=== PATIENT | male | born 1960 ===

== ENCOUNTER 2023-06-11 13:32 | Inpatient (IN) | payer OTHER ==
[~2023-06-11] VITALS: Ht 172.7 cm; Wt 73.6 kg
[2023-06-11 14:21] LABS: Mean Corpuscular HGB 32.1 pg (26.0-34.0); Mean Corpuscular HGB Conc 35.7 g/dL (31.5-36.5); Mean Corpuscular Volume 90 fL (80-100); Mean Platelet Volume 10.2 fL (9.1-12.4); Platelet Count 157 K/mm3 (150-400); RDW Coefficient Variation 12.3 % (11.7-14.2); Red Blood Cell Count 4.67 M/mm3 (4.30-5.90); White Blood Cell Count 13.96 K/mm3 (4.00-11.30)
[2023-06-11 14:35] LABS: Influenza A, PCR NEGATIVE (NEGATIVE); Influenza B, PCR NEGATIVE (NEGATIVE); Resp Syncytial Virus, PCR NEGATIVE (NEGATIVE); SARS-Cov-2 (COVID-19) PCR, MMC NEGATIVE (NEGATIVE)
[2023-06-11 14:39] LABS: BAND PERCENT MAN 31 % (0-8); BASOPHILS PERCENT MAN 0 % (0-2); EOSINOPHILS PERCENT MAN 0 % (0-6); LYMPHOCYTES ABSOLUTE MAN 0.27 K/mm3 (0.84-5.20); LYMPHOCYTES PERCENT MAN 2 % (21-46); METAMYELOCYTE ABSOLUTE MAN 0.27 K/mm3 (0.00-0.00); METAMYELOCYTE PERCENT MAN 2 % (0-0); MONOCYTES ABSOLUTE MAN 0.69 K/mm3 (0.16-1.47); MONOCYTES PERCENT MAN 5 % (4-13); SEG NEUTROPHILS PERCENT MAN 60 % (41-73); TOTAL CELLS COUNTED 100
[2023-06-11 14:41] LABS: Albumin/Globulin Ratio 0.9 (0.8-1.8); Bilirubin, Total 1.1 mg/dL (0.1-1.0); Bun/Creatinine Ratio 16.5 (12.0-20.0); Calcium, Blood 8.4 mg/dL (8.5-10.1); Creatinine, Blood 1.94 mg/dL (0.60-1.20); Globulin, Blood 3.3 g/dL (2.2-4.0); Potassium, Blood 3.6 mmol/L (3.5-5.5); Total Protein, Blood 6.3 g/dL (6.4-8.2)
[2023-06-11] MEDS ORDERED: Ventolin/Prove6.7 GM INH (17:27)
[2023-06-11] MEDS ORDERED: MONT10T PO (20:29)
[2023-06-12] VITALS (24 sets, daily range): BP systolic 81–137; BP diastolic 64–87
[2023-06-12 00:10] LABS: Base Excess Venous -3.6 mmol/L; Bicarbonate Venous 21.3 mmol/L (24.0-30.0); PCO2 Venous 39.9 mmHg (38-42); pH Blood Venous 7.35 (7.34-7.37)
--- NOTE | 2023-06-12 00:43 | NUR ---
ASSUMPTION OF CARE RECEIVED INTO CARE. ABLE TO AMBULATE INDEPENDENTLY FROM STRETCHER TO BED. ATTACHED TO MONITOR. IN SINUS TACHY. ON 2L SIGNALING DESIGN ENGINEER SPO2>95%. AUDIBLY WHEEZING/TACHYPNEIC/INCREASED WOB, RESPIRATORY CALLED. RT CAME TO ASSESS BREATHING TREATMENT DONE. AT BEDSIDE. SEE SHIFT ASSESSMENT FOR FURTHER DETAILS.
[2023-06-12 00:54] LABS: Source, Urine Clean Catch
[2023-06-12 01:00] LABS: Bilirubin, Urine Neg (Neg); Blood, Urine 4+ (Neg); Glucose Qualitative, Urine Neg (Neg); Ketones, Urine 1+ (Neg); Leukocyte Esterase, Urine Neg (Neg); Nitrite, Urine Neg (Neg); Protein, Urine 2+ (Neg); Specific Gravity, Urine 1.015 (1.003-1.022); Urobilinogen, Urine NORM (Normal)
[2023-06-12 01:17] LABS: Appearance, Urine Clear (Clear); Color, Urine Yellow (P-Yellow)
[2023-06-12 01:19] LABS: Bacteria Few /hpf; Red Blood Cells, Urine 0-2 /hpf (0-2); Squamous Epithelial Cells Few /hpf (Few); White Blood Cells, Urine 0-2 /hpf (0-5)
[2023-06-12 03:32] LABS: Hematocrit 40.5 % (37.0-53.0); Mean Corpuscular HGB 31.4 pg (26.0-34.0); Mean Corpuscular HGB Conc 34.6 g/dL (31.5-36.5); Mean Corpuscular Volume 91 fL (80-100); Mean Platelet Volume 10.3 fL (9.1-12.4); Platelet Count 145 K/mm3 (150-400); RDW Coefficient Variation 12.4 % (11.7-14.2); RDW Standard Deviation 41.1 fL (35.1-46.3); Red Blood Cell Count 4.46 M/mm3 (4.30-5.90); White Blood Cell Count 7.83 K/mm3 (4.00-11.30)
[2023-06-12 03:49] LABS: Bun/Creatinine Ratio 19.9 (12.0-20.0); Calcium, Blood 7.4 mg/dL (8.5-10.1); Creatinine, Blood 1.36 mg/dL (0.60-1.20); Magnesium, Blood 1.7 mg/dL (1.6-2.4); Potassium, Blood 4.2 mmol/L (3.5-5.5)
[2023-06-12 04:04] LABS: BAND PERCENT MAN 36 % (0-8); BASOPHILS PERCENT MAN 0 % (0-2); EOSINOPHILS PERCENT MAN 0 % (0-6); LYMPHOCYTES ABSOLUTE MAN 0.15 K/mm3 (0.84-5.20); LYMPHOCYTES PERCENT MAN 2 % (21-46); METAMYELOCYTE ABSOLUTE MAN 0.07 K/mm3 (0.00-0.00); METAMYELOCYTE PERCENT MAN 1 % (0-0); MONOCYTES ABSOLUTE MAN 0.54 K/mm3 (0.16-1.47); MONOCYTES PERCENT MAN 7 % (4-13); MYELOCYTE ABSOLUTE MAN 0.07 K/mm3 (0.00-0.00); MYELOCYTE PERCENT MAN 1 % (0-0); NEUTROPHILS ABSOLUTE MAN 6.96 K/mm3 (1.96-9.15); SEG NEUTROPHILS PERCENT MAN 53 % (41-73); TOTAL CELLS COUNTED 100
--- NOTE | 2023-06-12 06:06 | NUR ---
SHIFT SUMMARY ADMITTED TO ICU AT 0043. ALERT AND ORIENTED X4. PAIN TO FLANKS/BACK/ABDO THAT INCREASES WITH COUGHING, TYLENOL GIVEN PER MAR AND PT REPORTED WARM BLANKETS WRAPPED AROUND BACK WAS COMFORTING. IN ST HR 115-130S, MAP MAINTAINED >70. ON 2L SUPERVISOR ALTERATION WORKROOM SPO2>94%, COARSE THROUGHOUT, WHEEZY OFF/ON. 2 BREATHING TREATMENTS DONE. HAS FREQUENT COUGHING FITS WITH HEMOPTYSIS. NO N/V. VOIDS USING URINALS. SPENT NIGHT AT BEDSIDE. NO VOICED CONCERNS BY PT OR AT THIS TIME. REMAINS AWAKE SITTING IN BED WATCHING TV, CALL CHANDLER IN REACH.
--- NOTE | 2023-06-12 07:15 | NUR ---
Assumed care of pt at 0700. Bedside report received from Gladis ALATORRE. Pt A&O x 4. Answers questions, follows commands, verbalizes needs. Pleasant and cooperative with care. SpO2 90% or greater with 2 LPM NC. Reports 3/10 pain to chest/back, worse with taking a deep breath or coughing, but states 3/10 is tolerable at this time. HR 120s per monitor, sinus. BP stable.
--- NOTE | 2023-06-12 09:00 | NUR ---
Discussed with provider that pt is having pink sputum. Provider would like patient to continue receiving lovenox for DVT/PE prophylaxis.
--- NOTE | 2023-06-12 14:55 | NUR ---
Pt. is awake in bed and welcomes my visit. Pts. daughter is present. facilitate a short life review. Pt. verbalizes that he is roman catholic and that our volunteer had visited and gave him a rosary. Pt. welcomes more prayer. Prayed with Pt. and gave some biblical study education to the Pts. daughter who had her bible open. Daughter verbalized gratitude for the pastoral support and for the Pts. visit.
--- NOTE | 2023-06-12 16:58 | NUR ---
Discussed with provider that sputum has become more red in color. Also discussed that pt's lung sounds have changed from clear to rhonchi and he experienced tachypnea with rate 55 and drop in SpO2 repositioning for office technology instructor. Provider in to see patient and discuss plan of care. No new orders at this time.
--- NOTE | 2023-06-12 17:13 | NUR ---
SUMMARY Neuro: A&O x 4. Answers questions, follows commands, verbalizes needs. Pleasant and cooperative with care. Musc: OOB once this shift to stand and use urinal. Has not been out of bed since due to increasing dyspnea and hypoxia with exertion. This afternoon, pt had drop in SpO2 and respiratory rate 55 with in bed repositioning. Resp: Initially clear with shallow breaths. Breathing remains shallow but pt has rhonchi in all lung perez. Increased frequency of cough and expectoration with watery light red sputum. SpO2 94% with 4 LPM NC. ETCO2 monitoring in place, currently 28 with RR 33. Cardiac: ST this shift. HR 120s. HR was 140s at rest mid-shift, but this improved after 1 L bolus NS. BP improved from this AM. GI: No BM this shift. Pt was refusing regular diet because he felt that the stimulation caused him to cough more. Changed diet to full liquid. Intake is poor but pt tolerates this better than regular diet. : Good urine output of dark tomás urine. Skin: Unchanged from initial assessment. Psychosocial: Family at bedside for majority of shift. Daughter currently in room, plans to spend the night. Pt and family updated.
--- NOTE | 2023-06-12 21:45 | NUR ---
PAIN MANAGEMENT CALLED DR. THOMPSON REGARDING PT'S PAIN NOT DECREASING WITH CURRENT MEDICATIONS AND INTERVENTIONS. ORDERS RECIEVED, SEE EMAR.
--- NOTE | 2023-06-12 21:52 | NUR ---
ASSUMED CARE CARE WAS ASSUMED OF PT AT 1900, REPORT GIVEN BY GLORIA ALATORRE. PT A/O X4, PT ABLE TO PARTICIPATE IN CONVERSATION AND ASK QUESIONS APPROPRIATELY. PT ON BEDREST AT THIS TIME D/T SOB AND TACHYPNEA AT REST. PT COMPLAINING OF PLEURITIC/MUSCULAR PAIN, MEDICATING PT PER EMAR AND APPLIED HEAT PAD. PT ON 4 L N/C, O2 SATS > 92%. etCO2 MONITORING IN PLACE, MEASUREMENT 23-27 AT THIS TIME. RESPIRATION RATE 30s AT THIS TIME. PT SOB AT REST, BLOOD TINGED SPUTUM PRODUCED WITH PRODUCTIVE COUGHING. CARDIAC MONITORING REFLECTS SINUS TACH, HR 120s-130s. SBP 110s. NS INFUSING AT 75. DAUGHTER AT BEDSIDE.
[2023-06-13] VITALS (16 sets, daily range): BP systolic 90–127; BP diastolic 68–101
[2023-06-13 04:03] LABS: Hematocrit 36.8 % (37.0-53.0); Hemoglobin 12.6 g/dL (13.5-17.5); Mean Corpuscular HGB 31.8 pg (26.0-34.0); Mean Corpuscular HGB Conc 34.2 g/dL (31.5-36.5); Mean Corpuscular Volume 93 fL (80-100); Mean Platelet Volume 10.9 fL (9.1-12.4); Platelet Count 142 K/mm3 (150-400); RDW Coefficient Variation 12.8 % (11.7-14.2); RDW Standard Deviation 43.8 fL (35.1-46.3); Red Blood Cell Count 3.96 M/mm3 (4.30-5.90); White Blood Cell Count 14.52 K/mm3 (4.00-11.30)
[2023-06-13 04:29] LABS: BAND PERCENT MAN 30 % (0-8); BASOPHILS PERCENT MAN 0 % (0-2); EOSINOPHILS PERCENT MAN 0 % (0-6); LYMPHOCYTES ABSOLUTE MAN 0.43 K/mm3 (0.84-5.20); LYMPHOCYTES PERCENT MAN 3 % (21-46); METAMYELOCYTE ABSOLUTE MAN 0.14 K/mm3 (0.00-0.00); METAMYELOCYTE PERCENT MAN 1 % (0-0); MONOCYTES ABSOLUTE MAN 0.87 K/mm3 (0.16-1.47); MONOCYTES PERCENT MAN 6 % (4-13); NEUTROPHILS ABSOLUTE MAN 13.06 K/mm3 (1.96-9.15); SEG NEUTROPHILS PERCENT MAN 60 % (41-73); TOTAL CELLS COUNTED 100
[2023-06-13 04:37] LABS: Albumin, Blood 2.4 g/dL (3.4-5.0); Albumin/Globulin Ratio 0.8 (0.8-1.8); Bilirubin, Total 0.8 mg/dL (0.1-1.0); Bun/Creatinine Ratio 23.9 (12.0-20.0); Calcium, Blood 7.4 mg/dL (8.5-10.1); Creatinine, Blood 1.13 mg/dL (0.60-1.20); Total Protein, Blood 5.4 g/dL (6.4-8.2)
--- NOTE | 2023-06-13 05:22 | NUR ---
SHIFT SUMMARY PT REMAINS A/O X4, ABLE TO MAKE NEEDS KNOWN AND PARTICIPATE IN CONVERSATION. MEDICATED PT FOR PAIN PER EMAR WELL PROVIDED HEATING PAD WHICH PT STATED ASSISTED IN ALLEVIATING PAIN. PT ON 4 L N/C, O2 SATS > 90%. etCO2 MONITORING IN PLACE, 21 AT THIS TIME. PT'S TACHYPNEA IMPROVED THIS SHIFT, RR 16-20 AT THIS TIME. PT'S LUNG MCINTOSH COARSE T/O, PT CONTINUES TO HAVE MODERATE AMOUNT OF THICK SPUTUM, STILL APPEARS BLOOD-TINGED. PT ABLE TO SELF-SUCTION IN BED. CARDIAC MONITORING REFLECTS SINUS TACH, HR 100s. SBP 90s-100s WITH MAP > 65. PT ABLE TO USE THE URINAL INDEPENDENTLY. NS INFUSING AT 75.
--- NOTE | 2023-06-13 09:15 | NUR ---
Ward of Care: Care assumed at 0700hr. Patient alert and oriented x4. VSS, spO2 93-94% on 4L/NC. Respiratory rate in the 20's at shift change but then increased to 40's and after talking on the phone with family. SpO2 remained WNL, but patient required several minutes for respiratory rate to recover. LS extremely course throughout with occasional inspiratory pleural rub on the lt side. Patient able to expel small amount of thick brown sputum, no blood noted. Patient able to swallow pills whole and PO thin liquids without difficulty. Voiding using urinal in bed without difficulty. Will discuss plan with Dr. Vallejo this morning. Patient currently on waitlist at [facility], [facility], and [facility] r/t possible need for thoracic surgery. Will continue to monitor.
[2023-06-13 10:40] LABS: Acinetobacter baumannii DNA Not Detected copy/mL (NOT DETECT); Enterobacter cloacae DNA Not Detected copy/mL (NOT DETECT); Escherichia coli DNA Not Detected copy/mL (NOT DETECT)
[2023-06-13 10:41] LABS: Haemophilus influenzae DNA Not Detected copy/mL (NOT DETECT); Klebsiella aerogenes DNA Detected Bin 10^4 copy/mL (NOT DETECT); Klebsiella oxytoca DNA Not Detected copy/mL (NOT DETECT); Klebsiella pneumoniae DNA Not Detected copy/mL (NOT DETECT); Moraxella catarrhalis DNA Not Detected copy/mL (NOT DETECT); Proteus sp DNA Not Detected copy/mL (NOT DETECT); Pseudomonas aeruginosa DNA Not Detected copy/mL (NOT DETECT); Serratia marcescens DNA Not Detected copy/mL (NOT DETECT); Staphylococcus aureus DNA Detected Bin >=10^7 copy/mL (NOT DETECT); Streptococcus agalactiae DNA Not Detected copy/mL (NOT DETECT); Streptococcus pneumoniae DNA Not Detected copy/mL (NOT DETECT); Streptococcus pyogenes DNA Not Detected copy/mL (NOT DETECT)
[2023-06-13 10:42] LABS: Adenovirus DNA Not Detected (NOT DETECT); CTX-M Resistance Gene Not Detected; Chlamydia pneumonia Not Detected (NOT DETECT); Human Coronavirus RNA Not Detected (NOT DETECT); Human Metapneumovirus RNA Not Detected (NOT DETECT); IMP Resistance Gene Not Detected; Influenza virus A RNA Not Detected (NOT DETECT); Influenza virus B RNA Not Detected (NOT DETECT); KPC Resistance Gene Not Detected; Legionella pneumophila Not Detected (NOT DETECT); Mycoplasma pneumoniae Not Detected (NOT DETECT); NDM Resistance Gene Not Detected; OXA-48-like Resistance Gene Not Detected; Parainfluenza virus RNA Not Detected (NOT DETECT); Respiratory syncytial Vir RNA Not Detected (NOT DETECT); Rhinovirus+Enterovirus RNA Not Detected (NOT DETECT); VIM Resistance Gene Not Detected; mecA/C and MREJ Resist Gene Detected
--- NOTE | 2023-06-13 15:39 | NUR ---
Spiritual care support. Pt. is sittign up in a chair and welcomes my visit. Spouse is present. Facilitate a conversation regarding the families amilcar and belief. The Pt. and souopse both verbalize having a mohawk speaking marketing information analyst come and visit. This piece dye worker offers to make a contact to [employer] answering service. Famly verbalizes gratitude for the spiritual care visit. Contacted the answering service at approx. [phone].
--- NOTE | 2023-06-13 16:49 | NUR ---
"Spiritual Care | Analyzer Sales Request At Pts. request, Father Perez visited with Pt. and family."
--- NOTE | 2023-06-13 17:43 | NUR ---
Shift Summary: No significant changes throughout shift. VS remain stable. SpO2 93-96% on RA to 4L/NC depending on activity level. UP in chair for majority of shift. Tolerating [id number] to chair or toilet in room without difficulty. Patient becomes slightly tachypneic with activity but recovering faster this evening compared to this morning. Adequate PO intake of thin liquids, eating 25-50% of meal trays without difficulty. Voiding using urinal or toilet in room. Peripheral IV's remain patent and intact. Call light in reach, makes needs known. Will continue to monitor until report to NOC shift RN.
--- NOTE | 2023-06-13 20:53 | NUR ---
ASSUMED CARE CARE WAS ASSSUMED OF PT AT 1900, REPORT GIVEN BY ISAIAH ALATORRE. PT A/O X4, ABLE TO PARTICIPATE IN CONVERSATION AND ANSWER QUESTIONS APPROPRIATELY. PT DENIES PAIN. PT ON RA, O2 SATS 93-95%. PT DENIES SOB. RR 18-21. PT STATES THAT HE IS HAVING MINIMAL AMOUNTT OF SPUTUM PRODUCTION COMPARED TO LAST NIGHT. CARDIAC MONITORING REFLECTS SINUS TACH, HR 100s. SBP 120s. PT DENIES CP. PT'S AT BEDSIDE. PT TOLERATING PO FLUIDS AT THIS TIME. PT ABLE TO USE URINAL INDEPENDENTLY, SBA TO TOILET FOR SAFETY. Len HOLT.
[2023-06-13 23:30] LABS: Vancomycin, Trough 12.2 ug/mL (5.0-10.0)
[2023-06-14] VITALS (19 sets, daily range): BP systolic 94–167; BP diastolic 65–111
--- NOTE | 2023-06-14 03:30 | NUR ---
BREATHING TREATMENT AROUND 0300 PT HAD 2 INSTANCES OF DESATURATING BELOW 85% FOR LESS THAN 10 SECONDS AND THEN QUICKLY RECOVERING TO > 90%. WENT INTO PT'S ROOM AND HE STATED HE FELT LIKE HE WAS HAVING A HARD TIME BREATHING. PT WAS ON RA. PUT PT ON 4 L N/C AND AUSCULTATED LUNG MCINTOSH. PT'S LUNG MCINTOSH WHEEZY/DIM. CALLED RT, PT RECIEVED BREATHING TX. LUNG MCINTOSH AT THIS TIME CLEAR, PT STATES IT'S EASIER FOR HIM TO BREATHE. STATES THAT HE HAS SIGNIFICANT PAIN IN LEFT-MID BACK WHEN COUGHING, REQUESTING PAIN MEDICATIONS. MEDICATED PT PER EMAR.
[2023-06-14 03:55] LABS: Hematocrit 35.1 % (37.0-53.0); Hemoglobin 12.4 g/dL (13.5-17.5); Mean Corpuscular HGB 31.8 pg (26.0-34.0); Mean Corpuscular HGB Conc 35.3 g/dL (31.5-36.5); Mean Corpuscular Volume 90 fL (80-100); Mean Platelet Volume 10.3 fL (9.1-12.4); Platelet Count 159 K/mm3 (150-400); RDW Coefficient Variation 12.9 % (11.7-14.2); RDW Standard Deviation 42.5 fL (35.1-46.3); White Blood Cell Count 21.55 K/mm3 (4.00-11.30)
[2023-06-14 04:15] LABS: Albumin, Blood 2.1 g/dL (3.4-5.0); Albumin/Globulin Ratio 0.6 (0.8-1.8); Bilirubin, Total 1.2 mg/dL (0.1-1.0); Bun/Creatinine Ratio 27.9 (12.0-20.0); Calcium, Blood 7.9 mg/dL (8.5-10.1); Creatinine, Blood 1.04 mg/dL (0.60-1.20); Globulin, Blood 3.5 g/dL (2.2-4.0); Potassium, Blood 3.3 mmol/L (3.5-5.5); Total Protein, Blood 5.6 g/dL (6.4-8.2)
[2023-06-14 04:47] LABS: BAND PERCENT MAN 21 % (0-8); BASOPHILS PERCENT MAN 0 % (0-2); EOSINOPHILS ABSOLUTE MAN 0.21 K/mm3 (0.00-0.68); EOSINOPHILS PERCENT MAN 1 % (0-6); LYMPHOCYTES ABSOLUTE MAN 0.43 K/mm3 (0.84-5.20); LYMPHOCYTES PERCENT MAN 2 % (21-46); MONOCYTES ABSOLUTE MAN 0.86 K/mm3 (0.16-1.47); MONOCYTES PERCENT MAN 4 % (4-13); MYELOCYTE ABSOLUTE MAN 0.21 K/mm3 (0.00-0.00); MYELOCYTE PERCENT MAN 1 % (0-0); NEUTROPHILS ABSOLUTE MAN 19.82 K/mm3 (1.96-9.15); SEG NEUTROPHILS PERCENT MAN 71 % (41-73); TOTAL CELLS COUNTED 100
--- NOTE | 2023-06-14 05:43 | NUR ---
SHIFT SUMMARY PT REMAINS A/O X4. ABLE TO MAKE NEEDS KNOWN AND ANSWER QUESTIONS APPROPRIATELY. PT DENIES PAIN AT THIS TIME, MEDICATED ONCE PER EMAR FOR PAIN THIS SHIFT. SBA TO BATHROOM, PT TOELRATES WELL. PT SPENT THE MAJORITY OF THE NIGHT ON RA. O2 SATS AT THIS TIME 92%. PT HAD ONE EPISODE OF SOB AND WHEEZY LUNG MCINTOSH, SEE PREVIOUS NURSE NOTE. LUNG MCINTOSH CLEAR AT THIS TIME. PT CONTINUES TO HAVE OCCASIONAL COUGH, PRODUCED MODERATE AMOUNT OF BLOOD-TINGED/BROWN SPUTUM. CARDIAC MONITORING REFLECTS SINUS TACH AT THIS TIME, HR 100s. PT DENIES CP. SBP 90s-100s. PT ABLE TO USE THE URINAL INDEPENDENTLY. BILATERAL HANDS AND FEET +1 EDEMA.
--- NOTE | 2023-06-14 12:25 | NUR ---
REASSESSMENT PT HAS BEEN RESTING IN BED THROUGHOUT THE MORNING. HE HAS A PERSISTENT COUGH, SOMETIMES BRINGS UP SPUTUM. HIS SPO2 IS 93% ON RA. LUNGS ARE CLEAR ONT HE R, DIM IN THE UPPER LEFT AND COARSE IN THE L LOWER. SINUS TACH IN THE 120S, BP STABLE. TAKING PO LIQUIDS WITHOUT DIFFICULTY. VOIDING DARK YELLOW URINE. FEVER OF 100.5 CURRENTLY, TYLENOL GIVEN. PT APPEARS SLIGHTLY PALE AND CLAMMY. CONTINUING TO MONITOR.
--- NOTE | 2023-06-14 17:38 | NUR ---
SHIFT SUMMARY PT REMAINS ALERT AND ORIENTED. HIS FEVER RESOLVED WITH TYLENOL AND HIS SKIN IS NO LONGER PALE AND CLAMMY ONCE THE FEVER WENT AWAY. HE SAT UP IN THE CHAIR THIS AFTERNOON AND NEEDED 2L/NC TO KEEP SATS ABOVE 90%. HR SIT AND UP TO 130S WITH ACTIVITY, BUT SETTLED BACK TO THE 120S ONCE HE WAS IN THE CHAIR. DIET ADVANCED TO REGULAR PER DR. RODRIGUEZ AND PT IS TOLERATING. PT GOT UP TO THE TOILET AND ATTEMPTED A BM. PT HAS A BED ASSIGNED AT [facility] AND WILL TRANSFER OUT THIS EVENING. PT AND HIS HAVE BEEN UPDATED ON THIS. AWAITING AMBULANCE FOR TRANSPORT.
--- NOTE | 2023-06-14 19:08 | NUR ---
PT DISCHARGED VIA AMBULANCE TO [facility] AT 1835. REPORT CALLED TO MERCEDEZ AT [facility].
[2023-06-14 19:18] LABS: ANTI-NUCLEAR AB ANA,IGG ELISA None Detected (None Detected)
== END 2023-06-14 18:35 | disposition short-term general hospital (02) | DRG 871 ==
LOC: ER 13:32 → ICUE 18:53 → MEDS 18:53 → ICUE 06-12 00:25
PROVIDERS: Internal Medicine Critical Care Medicine; Nurse Practitioner Acute Care; Physician Assistant; Student in an Organized Health Care Education/Training Program; ADMIT Internal Medicine
DX: A41.02 Sepsis due to Methicillin resistant Staphylococcus aureus (principal); J85.0 Gangrene and necrosis of lung; J96.01 Acute respiratory failure with hypoxia; N17.9 Acute kidney failure, unspecified; E87.20 Acidosis, unspecified; R04.2 Hemoptysis; Z16.11 Resistance to penicillins; R65.20 Severe sepsis without septic shock; E87.6 Hypokalemia; I10 Essential (primary) hypertension; J45.20 Mild intermittent asthma, uncomplicated; B96.1 Klebsiella pneumoniae [K. pneumoniae] as the cause of diseases classified elsewhere; R73.9 Hyperglycemia, unspecified; Z79.51 Long term (current) use of inhaled steroids; Z11.52 Encounter for screening for COVID-19; Z79.899 Other long term (current) drug therapy
CPT/HCPCS: 0241U; 36415; 71046; 71260; 80048; 80053; 80202; 81001; 82803; 83036; 83605; 83735; 83880; 84484; 85025; 85379; 86038; 87040; 87070; 87077; 87147; 87186; 87205; 87633; 93005; 93010; 93306; 94640; 94664; 94762; 96361; 96365; 96366; 96367; 99285-25; A9270; J0295; J0456; J0696; J0744; J1170; J1650; J1885; J2405; J2543; J3370; J3480; J7030; J7050; P9047; Q9967